=== PATIENT | female | born 1975 | race Caucasian/White ===

== ENCOUNTER 2020-05-31 16:24 | Emergency (ER) | payer OTHER ==
[2020-05-31] MEDS ORDERED: IBUPROFEN 600 MG TABLET (FP) PO ONE ×2 (16:48→17:20)
[2020-05-31 17:02] VITALS: BP 127/90; PULSE 90; TEMP 98; BMI 20.5
== END 2020-05-31 18:06 | disposition home or self-care (01) ==
LOC: FER 16:24
DX: S43.002A Unspecified subluxation of left shoulder joint, initial encounter (principal)
CPT/HCPCS: 73030-TC-LT-FY; 99283-25

== ENCOUNTER 2022-08-19 08:37 | Emergency (ER) | payer OTHER ==
[2022-08-19 08:45] VITALS: RESP 18; BMI 20.6
[2022-08-19] MEDS ORDERED: SODIUM CHLORIDE 0.9% 1000 ML INFUS.BAG IV ONE (08:45)
[2022-08-19] MEDS ORDERED: ONDANSETRON 4 MG/2 ML VIAL IVPUSH ONE (08:45)
[2022-08-19] MEDS ORDERED: ACETAMINOPHEN 1000 MG/100 ML BAG IVPB ONE (08:45)
[2022-08-19] MEDS ORDERED: ACETAMINOPHEN INJECTION 100 ML IVPB ONE (08:59)
[2022-08-19] MEDS ORDERED: ONDANSETRON 4 MG/2 ML VIAL ONE (08:59)
[2022-08-19 09:19] LABS: HEMATOCRIT 35.3 % (32.4-45.2); HEMOGLOBIN 12.5 G/dL (10.7-15.3); MCH 32.5 pg (25.7-33.7); MCHC 35.4 g/dl (32.0-36.0); MEAN CELL VOLUME 91.8 fl (80-96); MEAN PLT VOLUME 8.5 fl (7.5-11.1); PLATELET COUNT 194.1 10^3/uL (134-434); RBC 3.84 10^6/uL (3.60-5.2); RDW 12.9 % (11.6-15.6); WHITE BLOOD COUNT 8.2 10^3/uL (4.0-10.8)
[2022-08-19 09:31] LABS: ALBUMIN 3.6 g/dl (3.4-5.0); BILIRUBIN,TOTAL 0.8 mg/dl (0.2-1); CALCIUM 8.7 mg/dl (8.5-10); TOT PROT 6.8 g/dl (6.4-8.2)
[2022-08-19 10:56] LABS: EPITHELIAL CELLS FEW /hpf
[2022-08-19] MEDS ORDERED: CEFTRIAXONE 1 GM in DEXTROSE 5%-WATER - 100 ML IVPB ONE (11:31)
[2022-08-19] MEDS ORDERED: cefTRIAXone SODIUM 1 GM VIAL ONE (11:32)
[2022-08-19 11:40] VITALS: BP 118/72; PULSE 95; TEMP 98.8
== END 2022-08-19 12:22 | disposition home or self-care (01) ==
LOC: FER 08:37
PROC: 3E0333Z Introduction of Anti-inflammatory into Peripheral Vein, Percutaneous Approach (ICD-10-PCS; principal; 2022-08-19)
PROC: 3E03329 Introduction of Other Anti-infective into Peripheral Vein, Percutaneous Approach (ICD-10-PCS; 2022-08-19)
PROC: 3E033GC Introduction of Other Therapeutic Substance into Peripheral Vein, Percutaneous Approach (ICD-10-PCS; 2022-08-19)
DX: N10 Acute pyelonephritis (principal)
CPT/HCPCS: 0241U-QW; 36415; 74176-TC; 80053; 81003; 81015; 85027; 87086; 99284-25

== ENCOUNTER → 2024-02-10 | Day surgery (SDC) | payer OTHER | END | disposition home or self-care (01) | LOC: FMAMMOTONE 12:15 | PROVIDERS: ATTEND Specialist | PROC: 0HBU3ZX Excision of Left Breast, Percutaneous Approach, Diagnostic (ICD-10-PCS; principal; 2024-02-10) | DX: N60.12 Diffuse cystic mastopathy of left breast (principal); N64.89 Other specified disorders of breast; R92.1 Mammographic calcification found on diagnostic imaging of breast | CPT/HCPCS: 19081; 76098-TC-FY; 87899; 88305-TC; A4648 ==